=== PATIENT | female | born 1985 | race Two or more races ===

== ENCOUNTER 2019-06-27 07:37 | Inpatient (IN) | payer BC, OTHER ==
[2019-06-27] VITALS (14 sets, daily range): BP systolic 113–140; BP diastolic 69–86
[~2019-06-27] VITALS: Ht 152.4 cm; Wt 64.4 kg
[~2019-06-27 07:37] MED LIST: cefOXitin 2gm in D5W 110ml IVPB ONE
[2019-06-27] MEDS ORDERED: Ropivacaine 5mg/ml Vial 20ml INJ ONE (08:24)
[2019-06-27] MEDS ORDERED: Bupivacaine 0.5% Inj 30 ml vial INJ ONE (08:24)
[2019-06-27] MEDS ORDERED: PRENATAL COMPL1 EAC1 PO (08:32)
[2019-06-27] MEDS ORDERED: LR 1000ml 1,000 ML IVLG SCH (09:17)
--- NOTE | 2019-06-27 09:21 | Anethesia Preoperative Eval ---
Anesthesia Pre-op PMH/ROS General Date of Evaluation: Jun 27, 2019 Time of Evaluation: 09:24 Anesthesiologist: Amy ASA Score: ASA 2 Mallampati Score Class I : Soft palate, uvula, fauces, pillars visible Class II: Soft palate, uvula, fauces visible Class III: Soft palate, base of uvula visible Class IV: Only hard plate visible Mallampati Classification: Class I Surgeon: Janel Diagnosis: Abd Pain Surgical Procedure: Open Abdominal Myomectomy, Hysteroscopy, D&C Anesthesia History: none Family History: no anesthesia problems Allergies: Coded Allergies: PENICILLINS (Verified Allergy, Intermediate, HIVES, 06/27/19) Uncoded Allergies: PICKLES (Allergy, Severe, 06/27/19) HIVES, COUGHING Medications: see eMAR Patient NPO?: Yes NPO Date: Jun 26, 2019 NPO Time: 2200 Past Medical History Cardiovascular: Reports: HTN Gastrointestinal/Genitourinary: Reports: other - Fibroids Hematology/Immune: Reports: anemia Anesthesia Pre-op Phys. Exam Physician Exam Last Vital Signs Date Time Temp Pulse Resp B/P (MAP) Pulse Ox O2 Delivery O2 Flow Rate FiO2 06/27/19 08:32 Room Air 06/27/19 08:16 98.2 79 18 119/77 (91) 99 Constitutional: NAD Neurologic: CN 2-12 intact Cardiovascular: RRR Respiratory: CTA Gastrointestinal: S/NT/ND Airway Exam Mallampati Score: Class I MO: full ROM: full Teeth: intact Anesthesia Pre-op A/P Labs Urine Test Test 06/27/19 08:00 Urine HCG, Qualitative Negative (NEGATIVE) Risk Assessment & Plan Assessment: ASA 2 Plan: GA, SED, GlideScope Pre-Antibiotics Dru Grams Cefoxitin IV Given Within 1 Hr of Incision: Yes Time Given: 09:46 Kevin Reyes MD Jun 27, 2019 09:21
--- NOTE | 2019-06-27 09:22 | Immediate Post-Op Evaluation ---
Immediate Post-Op Evalulation Immediate Post-Op Evalulation Procedure: Open Abdominal Myomectomy, Hysteroscopy, D&C Date of Evaluation: Jun 27, 2019 Time of Evaluation: 12:45 IV Fluids: 900 LR Blood Products: 0 Estimated Blood Loss: 50 Urinary Output: 200 Blood Pressure Systolic: 113 Blood Pressure Diastolic: 71 Pulse Rate: 82 Respiratory Rate: 16 O2 Sat by Pulse Oximetry: 100 Temperature (Fahrenheit): 97.8 Pain Score (1-10): 2 Nausea: No Vomiting: No Complications 0 Patient Status: awake, reacts, patent, extubated, none Hydration Status: adequate Dru Grams Cefoxitin IV Given Within 1 Hr of Incision: Yes Time Given: 09:46 Kevin Reyes MD Jun 27, 2019 09:22
[2019-06-27] MEDS ORDERED: Sodium Chloride 10ml vial INJ ONE (09:23)
[2019-06-27] MEDS ORDERED: Lidocaine 1% MPF 10mg/ml 5ml ONE ×2 (09:23→11:04)
[2019-06-27] MEDS ORDERED: Dexamethasone 4mg/ml vial ONE (09:23)
[2019-06-27] MEDS ORDERED: Propofol 200mg/20ml IV ONE ×2 (09:23→11:04)
[2019-06-27] MEDS ORDERED: fentaNYL 100 mcg/2 mL IV ONE ×3 (09:24→11:53)
[2019-06-27] MEDS ORDERED: cefOXitin 2gm Inj ONE (09:29)
[2019-06-27] MEDS ORDERED: Hydromorphone 0.5mg/0.5ml inj IVP PRN (09:30)
[2019-06-27] MEDS ORDERED: LORazepam Inj 2mg/ml 1ml IV PRN (09:30)
[2019-06-27] MEDS ORDERED: Metoclopramide 10mg/2ml Inj IVP PRN (09:30)
[2019-06-27] MEDS ORDERED: oxyCODONE HCL/Acetaminophen 5/325mg ORAL PRN (09:30)
[2019-06-27] MEDS ORDERED: DiphenhydrAMINE 50mg/ml Inj IVP PRN (09:30)
[2019-06-27] MEDS ORDERED: Labetalol 5mg/ml 20ml vial IV PRN (09:30)
[2019-06-27] MEDS ORDERED: Meperidine 25mg/0.5ml Inj (FOR RIGORS ONLY) IV PRN (09:30)
[2019-06-27] MEDS ORDERED: fentaNYL 100 mcg/2 mL IV PRN (09:30)
[2019-06-27] MEDS ORDERED: Ketorolac 30mg Inj IV PRN ×2 (09:30)
[2019-06-27] MEDS ORDERED: Midazolam 2mg/2ml Inj IVP PRN (09:30)
[2019-06-27] MEDS ORDERED: HYDROcodone/Acetamin 5/325 tab ORAL PRN ×2 (09:30→12:30)
[2019-06-27] MEDS ORDERED: Atropine Sulfate 0.4mg/ml inj IVP PRN (09:30)
[2019-06-27] MEDS ORDERED: Acetaminophen (Non formulary) 100 ML IV ONE (09:30)
[2019-06-27] MEDS ORDERED: HYDROcodone/Acetamin 7.5/325 tab ORAL PRN (09:30)
[2019-06-27] MEDS ORDERED: Lidocaine 1% Plain 30 ml INJ ONE (09:34)
--- NOTE | 2019-06-27 09:40 | Pre-Procedure Note/Attestation ---
Pre-Procedure Note/Attestation Complete Prior to Procedure Planned Procedure: not applicable Procedure Narrative: Abdominal Myomectomy, Video Hysteroscopy, D&C Indications for Procedure Pre-Operative Diagnosis: Multiple Uterine Myomas, Severe Abnormal Uterine Bleeding Attestation I attest that I discussed the nature of the procedure; its benefits; risks and complications; and alternatives (and the risks and benefits of such alternatives ), prior to the procedure, with the patient (or the patient's legal sales representative public utilities). I attest that, if there was a reasonable possibility of needing a blood transfusion, the patient (or the patient's legal sales representative public utilities) was given the [facility] standardized written summary, pursuant to the Rein[place] Jer Blood Safety Act ([place] Health and Safety Code # 1645, as amended). I attest that I re-evaluated the patient just prior to the surgery and that there has been no change in the patient's H&P, except as documented below: Vikas Islas MD Jun 27, 2019 09:39
--- NOTE | 2019-06-27 09:48 | Short Stay Surgery H&P ---
History of Present Illness History of Present Illness HPI Missy Galloway is a 34 year old female who was admitted on Jun 27, 2019 at 07 :37 for Uterine Fibroids and severe uterine abnormal bleeding. On U/S patient has multiple myomas including submucosal. We will proceed with Abdominal Myomectomy and Hysteroscopy + D&C. Patient History Allergies: Coded Allergies: PENICILLINS (Verified Allergy, Intermediate, HIVES, 06/27/19) Uncoded Allergies: PICKLES (Allergy, Severe, 06/27/19) HIVES, COUGHING Medication History Miscellaneous Medications Pnv Cmb#21/Iron/Folic Acid ( Complete Caplet), 1 EACH PO, (Reported) Review of Systems Cardiovascular: Reports: no symptoms Respiratory: Reports: no symptoms Skeletal: Reports: no symptoms Gastrointestinal: Reports: no symptoms Genitourinary: Reports: see HPI Neurologic: Reports: no symptoms Endocrine: Reports: no symptoms Hematologic: Reports: no symptoms Physical Exam Vital Signs Last Vital Signs Date Time Temp Pulse Resp B/P (MAP) Pulse Ox O2 Delivery O2 Flow Rate FiO2 06/27/19 08:32 Room Air 06/27/19 08:16 98.2 79 18 119/77 (91) 99 Labs Laboratory Tests Test 06/27/19 08:00 Urine HCG, Qualitative Negative (NEGATIVE) Skin: normal HENT: normal Heart: normal Lungs: normal Abdomen: normal Extremities: normal Genitourinary: abnormal - Severely Enlarged Uterus Plan Plan of Care D&C, Hysteroscopy, Abdominal Myomectomy Attestation Are the patient's medical conditions optimized for surgery? Attestation Response: yes Vikas Islas MD Jun 27, 2019 09:48
[2019-06-27] MEDS ORDERED: Neostigmine 1mg/ml 10ml Inj ONE (11:29)
[2019-06-27] MEDS ORDERED: Glycopyrrolate 0.2mg/ml 1ml Vial ONE (11:29)
--- NOTE | 2019-06-27 12:24 | Brief Operative Note ---
Immediate Post Operative Note Operative Note Pre-op Diagnosis: Multiple Uterine Myomas, Severe Abnormal Uterine Bleeding Post-op Diagnosis: Same as preop PLUS extensive pelvic adhesions Post-op Diagnosis: same as pre-op plus Findings: consistent w/pre-op dx studies Surgeon: Brent Islas MD Elevated Work Platform Operator: Hanny Zavala MD Anesthesiologist: Jazzy Reyes MD Anesthesia: general Specimen: yes - Multiple fibroids, D&C Complications: none Condition: stable Fluids: LR @ 125 cc/hr Estimated Blood Loss: volume - 100 cc Drains: none Implant(s) used?: No Brent Islas MD Jun 27, 2019 12:24
[2019-06-27] MEDS ORDERED: Tylenol #3 tab (300mg/30mg) ORAL PRN (12:30)
--- NOTE | 2019-06-27 14:00 | NUR ---
NURSE NOTES: Patient received from PACU via bed to 312-2 on O2 3LNC, in stable condition. Patient sleeping, arousable to name. Denies pain, NV, SOB. IV LR (will change to post op ordered IVF), infusing to right hand. Lower abdominal dressing CDI, enid-pad in place. FC draining y/cl urine to gravity. Bilateral SCDs on, skin warm, wiggles, no NT. Provided oral care kit and instructed on use. Provided clear liquids. Oriented patient to room and call light for safety. Spouse at bedside. Bed in lowest position, call light in reach, will continue to monitor.
[2019-06-27] MEDS: D5 1/2NS 1,000 ML IV SCH (14:30)
--- NOTE | 2019-06-27 14:53 | NUR ---
CASE MANAGEMENT:REVIEW 34 YR OLD FEMALE HERE FOR ELECTIVE SURGERY SI: MULTIPLE UTERINE MYOMAS SEVERE ABNORMAL UTERINE BLEEDING 98.2 79 18 119/77 99% ON RA IS:TO SURGERY IVF@100/HR DILAUDID SQ Q1HRS PRN : TO MED/SURG 3EAST
[2019-06-27] MEDS: HYDROmorphone 1mg/ml Carpuject SUBQ PRN ×3 (15:58→21:36)
--- NOTE | 2019-06-27 16:00 | NUR ---
NURSE NOTES: Reviewed all post op orders with patient and spouse. Instructed CDB, patient requested IS. Provided IS, instructed and demonstrated use, patient returned demonstration. Provided rolled blanket to splint surgical site (lower abdomen) while coughing. Patient requires encouragement and further teaching.
--- NOTE | 2019-06-27 19:41 | NUR ---
NURSE NOTES: Received report from MANNIE Funez. Pt is awake, lying semi-cai's; comfortably resting. No signs of acute distress noted. Pt denies any pain at this time. AOx4; able to make needs known. Checked IV site, line, and rate; patent and running. No erythema, bleeding, or infiltration noted. Dressing dry and intact. Bed at lowest position. Brakes on. Siderails up x2. Call light within reach. Will continue to monitor.
--- NOTE | 2019-06-27 19:41 | NUR ---
HAND-OFF: Report given to Arlene CHAND, rounds made. Endorsed post op orders.
--- NOTE | 2019-06-27 20:00 | Operative Note - Dictated ---
PREOPERATIVE DIAGNOSES: Multiple uterine myoma and severe abnormal uterine bleeding. POSTOPERATIVE DIAGNOSES: Multiple uterine myoma, severe abnormal uterine bleeding, extensive pelvic adhesions. PROCEDURE PERFORMED: Multiple myomectomy, lysis of pelvic adhesions, enterolysis, and video hysteroscopy with endometrial curettage. SURGEON: Vikas Islas M.D. ARCHITECTURAL DESIGN LECTURER: Hanny Zavala M.D. ANESTHESIOLOGIST: Kevin Reyes M.D. ANESTHESIA: General endotracheal. PROCEDURE IN DETAIL: After all the appropriate consents were signed, the patient was brought to the operating room and placed on the table in supine position. The vaginal procedure started first with video hysteroscopy. After the uterus was entered, cavity was visualized. Both tubal ostia could be visualized. There was a single anterior submucosal myoma, which was partially protruding into the cavity. At this time, endocervical and endometrial curettage were performed and after the myoma was well localized, uterine manipulator was placed. At this time, a Pfannenstiel incision was made. It was carried through subcutaneous tissue until the fascia was nicked. The fascial incision was extended bilaterally to expose the rectus muscle. The rectus muscle was parted in the midline to expose the peritoneum. Peritoneum was entered sharply and the uterine myomas could be now well identified. There were several large subserosal fibroids and others below the serosal surface extending into the myometrium. The procedure began with serially removing the subserosal and pedunculated myomas followed by the intramural fibroids. The submucosal fibroid identification and removal was left where the area which was marked off with a hysteroscope was now palpated and the myoma was palpated. This area was then infiltrated with vasopressin solution and incised. The uterine myoma was now identified, grasped, and removed. The area of uterine defect was sutured with 2-0 and 0 Vicryl sutures. At this time, all of the operative sites were evaluated and found to be hemostatic. The ovaries were evaluated and found to be normal. The uterus was placed back into the pelvis and video hysteroscopy was repeated to assure that the myoma was fully removed. The uterine fibroid could no longer be identified with hysteroscope and the procedure continued with closure of the pelvic abdominal incision. The peritoneal layer was closed first using 2-0 Vicryl suture. Fascia was closed using 0 Vicryl bilaterally in running fashion. Subcutaneous suture was placed and the skin was closed with stainless steel jesu. Dressing was placed and the patient was awakened from general anesthesia after being placed in the supine position. The patient tolerated the procedure very well and transferred to the recovery room in excellent condition. Vikas Lauren Islas DR: NICOLAS JOB#: [id number] CC:
[2019-06-27] MEDS ORDERED: D5 1/2NS 1000ml IV ONE (22:55)
[2019-06-28] VITALS: BP 105/69
[2019-06-28] MEDS: HYDROmorphone 1mg/ml Carpuject SUBQ PRN ×5 (00:06→19:39)
[2019-06-28] MEDS: D5 1/2NS 1,000 ML IV SCH ×3 (00:45→19:40)
[2019-06-28 04:00] VITALS: BP 109/63
--- NOTE | 2019-06-28 07:31 | NUR ---
NURSE NOTES: Report received from Arlene CHAND, rounds made. Patient resting in semi-fowlers position in bed. Alert oriented x4, calm, no distress on O2 3LNC. Abdominal dressing CDI. Bilateral SCDs on. IV (D5 1/2 NS at 100 ml/hr) infusing to right hand, site asymptomatic. Patient states pain is constant, will medicate as ordered, will notify Dr. Islas. Encouraged IS. FC draining to gravity ycl urine. Call light in reach, bed in lowest position, will continue to monitor.
--- NOTE | 2019-06-28 07:37 | NUR ---
HAND-OFF: Report given to MANNIE Funez. Pt is awake and in stable condition. Plan of care endorsed.
[2019-06-28 08:00] VITALS: BP 103/66
[2019-06-28] MEDS ORDERED: Ketorolac 30mg Inj IM SCH (09:00)
--- NOTE | 2019-06-28 10:50 | NUR ---
*-* INSURANCE *-* ALL CLINICALS HAVE BEEN FAXED TO: [facility] FAX CLINICALS TO: [phone]
[2019-06-28] MEDS: HYDROcodone/Acetamin 5/325 tab ORAL PRN (11:13)
[2019-06-28 12:00] VITALS: BP 126/79
--- NOTE | 2019-06-28 12:30 | NUR ---
NURSE NOTES: Medicated with Toradol 60 mg IM x1 at 0902, tolerated well. Discontinued FC at 1025, patient to bathroom, ambulated around room, sat up in chair. Voided 350 ml at this time. Appetite fair on clear liquids, no NV, no gas yet. Medicated with [place] 5 mg, for breakthrough pain, tolerated well.
--- NOTE | 2019-06-28 13:00 | NUR ---
NURSE NOTES: Patient requesting abdominal binder, orders received. Provided abdominal binder and instructions on to use while out of bed, patient verbalized understanding.
--- NOTE | 2019-06-28 13:55 | 48 Hour Post Anesthesia Eval ---
Post Anesthesia Evaluation Procedure: Open Abdominal Myomectomy, Hysteroscopy, D&C Date of Evaluation: Jun 28, 2019 Time of Evaluation: 13:54 Blood Pressure Systolic: 128 0: 76 Pulse Rate: 74 Respiratory Rate: 20 Temperature (Fahrenheit): 97.6 O2 Sat by Pulse Oximetry: 98 Airway: patent Nausea: No Vomiting: No Pain Intensity: 3 Hydration Status: adequate Cardiopulmonary Status: stable Mental Status/LOC: patient returned to baseline Follow-up Care/Observations: n/a Post-Anesthesia Complications: none Follow-up care needed: N/A Adrian Ley MD Jun 28, 2019 13:55
[2019-06-28 16:00] VITALS: BP 114/74
[2019-06-28] MEDS: Ketorolac 30mg Inj IV SCH ×2 (16:00→21:55)
--- NOTE | 2019-06-28 19:07 | General Progress Note ---
Progress Note Progress Note POD #1 sp abdominal myomectomy Ambulating, good pain control with Toradol Incision dry, jesu intact PLAN: May shower stool softener will consider dc tomorrow Vikas Islas MD Jun 28, 2019 19:06
[2019-06-28] MEDS: Docusate 100mg cap ORAL SCH (19:39)
[2019-06-28 20:00] VITALS: BP 126/71
--- NOTE | 2019-06-28 20:05 | NUR ---
HAND-OFF: Report given to Clara RN, rounds made. Lower abdominal dressing CDI (4x4 gauze only). Endorsed new orders.
--- NOTE | 2019-06-28 20:06 | NUR ---
NURSE NOTES: Received report & pt from MANNIE Funez. Pt lying in bed, a&ox4, in room air. No s/s of acute distress & c/o 6/10 pain. Surgical drsg C/D/I. IV site intact with IVF running as ordered. Plan of care discussed.
[2019-06-29] VITALS: BP 110/66
[2019-06-29] MEDS: HYDROcodone/Acetamin 5/325 tab ORAL PRN ×3 (01:26→12:34)
[2019-06-29] MEDS: Ketorolac 30mg Inj IV SCH ×2 (02:43→09:13)
[2019-06-29 04:00] VITALS: BP 123/76
[2019-06-29] MEDS: D5 1/2NS 1,000 ML IV SCH ×2 (06:04→08:00)
--- NOTE | 2019-06-29 07:29 | NUR ---
HAND-OFF: Report given to MANNIE Franco. Pt in stable condition.
--- NOTE | 2019-06-29 07:30 | NUR ---
NURSE NOTES: awakealert. pain scale 710. abdominal dressing dry and intact. in no apparent distress. Addendum: 06/29/19 at 1314 by EDWIN TAYLOR RN AWAKE/ALERT.PAIN SCALE 7/10. ABDOMINAL DRESSING DRY AND INTACT. IN NO DISTRESS.
[2019-06-29 08:00] VITALS: BP 129/74
[2019-06-29] MEDS: Docusate 100mg cap ORAL SCH (09:13)
[2019-06-29 12:00] VITALS: BP 130/86
--- NOTE | 2019-06-29 12:12 | Discharge Summary ---
Discharge Summary Hospital Course Date of Admission Jun 27, 2019 at 07:37 Date of Discharge 06/29/2019 Admitting Diagnosis Uterine myomas, admitted for abdominal myomectomy Reason for Hospitalization: Myomectomy KERLINE Galloway is a 34 year old female who was admitted on Jun 27, 2019 at 07 :37 for Uterine Fibroids Consultations NONE Procedures Abdominal Myomectomy Hospital Course Uncomplicated Discharge Condition Upon Discharge: stable Discharge Vital Signs Last Vital Signs Date Time Temp Pulse Resp B/P (MAP) Pulse Ox O2 Delivery O2 Flow Rate FiO2 06/29/19 09:43 98.5 06/29/19 09:00 Room Air 06/29/19 08:00 100 20 129/74 (92) 95 06/28/19 10:25 3.0 Discharge Disposition Patient was discharged to HOME Discharge Diagnoses: (1) Uterine fibroid (2) OPEN ABDOMINAL MYOMECTOMY Discharge Instructions Discharge Instructions Follow up with: Dr Vikas Islas / Dr Zavala on [facility] 07/02/2019 Diet: regular Activity: light activity, ambulate, as tolerated Special Instructions May Shower, no need to cover incision For Surgical Patients Contact your physician for: bleeding, pain, tenderness Vikas Islas MD Jun 29, 2019 12:12
--- NOTE | 2019-06-29 13:14 | NUR ---
NURSE NOTES: DISCHARGED HOME ACCPD BY IN STABLE CONDITION. DC INSTRUCTIONS GIVEN.
[2019-06-29] MEDS ORDERED: D5 1/4NS 1000ml IV ONE (13:59)
--- NOTE | 2019-07-01 14:57 | NUR ---
*-* INSURANCE *-* DISCHARGE SUMMARY HAS BEEN FAXED TO; [facility] FAX CLINICALS TO: [phone]
== END 2019-06-29 13:10 | disposition home or self-care (01) | DRG 743 ==
LOC: SDSOVERFLO 07:37 → 3E 14:00
DX: D25.9 Leiomyoma of uterus, unspecified (principal); N93.9 Abnormal uterine and vaginal bleeding, unspecified; N73.6 Female pelvic peritoneal adhesions (postinfective); Z88.0 Allergy status to penicillin
CPT/HCPCS: 36415; 81025; 86850; 86900; 86901; 87081; 94003; 94150; J2405; J2710; J2795